=== PATIENT | male | born 1960 | race Caucasian/White ===

== ENCOUNTER 2019-06-17 18:13 | Emergency (ER) | payer OTHER ==
[2019-06-17] MEDS ORDERED: HYDROmorphone 0.5 MG/0.5 ML Syringe IM ONE ×2 (18:36→19:28)
--- NOTE | 2019-06-17 19:20 | EDM.PDOC ---
ED HPI GENERAL MEDICAL PROBLEM - General Chief Complaint: Upper Extremity Injury/Pain Stated Complaint: POSSIBLE BROKEN LEFT ARM Time Seen by Provider: 06/17/19 18:49 Source of Information: Reports: Patient, RN Notes Reviewed History Limitations: Reports: No Limitations - History of Present Illness INITIAL COMMENTS - FREE TEXT/NARRATIVE: Patient is a 59-year-old male who presents to the ED for the evaluation of a left wrist injury. Patient states that he fell outdoors today due to the icy conditions, and ended up slipping backwards and fell onto his outstretched hand. He notes that he pain immediately to the left wrist, he does appreciate some swelling as well. Patient try to go to the walk-in clinic for management but they deferred him here for evaluation and management. Patient did not take any sort of pain medication prior to arrival to the ER. There is no obvious bruising noted, the patient is not having any numbness and tingling distal to the injury. Patient states he has had some shooting pains from time to time that shoots up his elbow, but he is still able to move his elbow ad bettina. He is not complaining of any pain in his shoulder. He did not hit his head. Patient is right-hand dominant. Treatments CERTIFIED NUCLEAR MEDICINE TECHNOLOGIST: Reports: Other (see below) Other Treatments CERTIFIED NUCLEAR MEDICINE TECHNOLOGIST: none Left Wrist Pain Score (Numeric/FACES): 10 - Related Data Allergies Allergy/AdvReac Type Severity Reaction Status Date / Time Sulfa (Sulfonamide Allergy Hives Verified 06/17/19 18:37 Antibiotics) Home Meds: Home Meds Hydrocodone/Acetaminophen [Hydrocodon-Acetaminophen 5-325] 1 each PO Q6H #30 tablet 06/17/19 [Rx] Past Medical History Cardiovascular History: Reports: High Cholesterol, Hypertension Musculoskeletal History: Reports: Arthritis, Back Pain, Chronic, Neck Pain, Chronic Psychiatric History: Reports: Anxiety, Depression Social & Family History - Tobacco Use Smoking Status *Q: Current Every Day Smoker Years of Tobacco use: 30 Packs/Tins Daily: 0.2 - Caffeine Use Caffeine Use: Reports: Soda - Recreational Drug Use Recreational Drug Use: No Review of Systems - Review of Systems Review Of Systems: Comprehensive ROS is negative, except as noted in HPI. ED EXAM, GENERAL - Physical Exam Exam: See Below Exam Limited By: No Limitations General Appearance: Alert, WD/WN, No Apparent Distress Eye Exam: Bilateral Eye: EOMI, Normal Inspection, PERRL Throat/Mouth: Normal Inspection, Normal Lips, Normal Teeth, Normal Gums, Normal Oropharynx, Normal Voice, No Airway Compromise Head: Atraumatic, Normocephalic Neck: Normal Inspection Respiratory/Chest: No Respiratory Distress, Lungs Clear, Normal Breath Sounds, No Accessory Muscle Use, Chest Non-Tender Cardiovascular: Normal Peripheral Pulses, Regular Rate, Rhythm, No Edema, No Murmur Peripheral Pulses: 3+: Radial (L), Radial (R) GI/Abdominal: Normal Bowel Sounds, Soft, Non-Tender, No Distention, No Mass Extremities: Normal Inspection (mild swelling noted to L wrist), Normal Capillary Refill, Limited Range of Motion (of L wrist d/t pain) Neurological: Alert, Oriented, Normal Cognition, No Motor/Sensory Deficits Psychiatric: Normal Affect, Normal Mood Skin Exam: Warm, Dry, Intact, Normal Color, No Rash ED TRAUMA EXTREMITY PROCEDURES - Splinting Left Upper Extremity Splint Site: L wrist Pre-Procedure NV Status: Normal Post-Procedure NV Status: Normal Splint Material: Fiberglass Splint Design: Posterior Applied & Form Fitted By: Provider Provider Post-Splint Application NV Check: NV Status Normal, Good Position Complications: No Course - Vital Signs Last Recorded V/S: Last Vital Signs Temp 98.0 F 06/17/19 18:52 Pulse 82 06/17/19 21:10 Resp 16 06/17/19 21:10 BP 132/77 06/17/19 21:10 Pulse Ox 97 06/17/19 21:10 - Orders/Labs/Meds Orders: Active Orders 24 hr Category Date Time Status DME for Discharge [COMM] Routine Oth 06/17/19 21:06 Ordered Meds: Medications Discontinued Medications Generic Name Dose Route Start Last Admin Trade Name Freq PRN Reason Stop Dose Admin Hydromorphone HCl 0.5 mg 06/17/19 18:36 06/17/19 18:48 Dilaudid IM 06/17/19 18:37 0.5 mg ONETIME ONE Administration Hydromorphone HCl 0.5 mg 06/17/19 19:28 06/17/19 19:34 Dilaudid IM 06/17/19 19:29 0.5 mg ONETIME ONE Administration Oxycodone/Acetaminophen 1 tab 06/17/19 20:34 06/17/19 20:38 Percocet 325-5 Mg PO 06/17/19 20:35 1 tab ONETIME ONE Administration - Re-Assessments/Exams Free Text/Narrative Re-Assessment/Exam: 06/17/19 19:57 Patient presented to the ED for the evaluation of a left wrist injury. X-rays were obtained at time of triage, and this does demonstrate a fracture of his left radius, that is read as a comminuted fracture within the distal left radius that appears to have posterior impaction and dorsal tilt of the distal radial articular margin. There is an avulsion fracture seen off the ulnar styloid process as well. With soft tissue swelling noted. Patient has been given a total of 1 mg of Dilaudid for pain management. Patient will be splinted , recommended follow-up with orthopedics early next week, and will be sent home with some pain medication for over the weekend. Departure - Departure Time of Disposition: 20:08 Disposition: Home, Self-Care 01 Condition: Fair Clinical Impression: Fracture of radius and ulna near wrist Qualifiers: Encounter type: initial encounter Fracture type: closed Laterality: left Qualified Code(s): S52.502A - Unspecified fracture of the lower end of left radius, initial encounter for closed fracture - Discharge Information *PRESCRIPTION DRUG MONITORING PROGRAM REVIEWED*: Yes *COPY OF PRESCRIPTION DRUG MONITORING REPORT IN PATIENT ANGIE: No Prescriptions: Hydrocodone/Acetaminophen [Hydrocodon-Acetaminophen 5-325] 1 each PO Q6H #30 tablet Instructions: Wrist Fracture Treated With Immobilization, [id number] Referrals: Cornel Gardner MD [Primary Care Provider] - Forms: ED Department Discharge, ED Return to Work/School Form Additional Instructions: You have been evaluated in the ED for your left wrist injury. Your x-ray demonstrated that you have fractured your L wrist bones near your wrist joint. Please use ice as tolerated to the affected area. You may take Tylenol 500 mg or ibuprofen 600mg q6 hrs for pain relief. Please do so until you have a tolerable level of pain with activity. Do not exceed 4000mg Tylenol, Do not exceed 3200mg ibuprofen in a 24 hour time period. You were given a prescription for a strong pain medication, hydrocodone/ acetaminophen 5/325, please take 1 tab every 6 hours as needed for pain not relieved by Tylenol or ibuprofen alone. Please note this does contain Tylenol in it, so do not take more than 4000 mg in a 24-hour time span. These medications can be addictive, so please take as few as possible to achieve adequate pain control. These meds can also be quite constipating, recommend that you increase your oral fluid intake and take a stool softener like MiraLAX while taking these medications. Please call Ortho for follow-up and further evaluation Dr. Nunn is our orthopedic surgeon, his office number is [phone]. Please call and set up an appointment as soon as possible for further management, try to shoot for early next week sometime. Please return to ED if your symptoms should change or worsen. Sepsis Event Note - Evaluation Sepsis Screening Result: No Definite Risk - Focused Exam Vital Signs: Vital Signs Temp Pulse Resp BP Pulse Ox 06/17/19 21:10 82 16 132/77 97 06/17/19 18:52 98.0 F 65 20 149/96 H 97 Date Exam was Performed: 06/17/19 Time Exam was Performed: 21:30 - My Orders Last 24 Hours: My Active Orders 06/17/19 21:06 DME for Discharge [COMM] Routine - Assessment/Plan Last 24 Hours: My Active Orders 06/17/19 21:06 DME for Discharge [COMM] Routine
--- NOTE | 2019-06-17 19:42 | CR ---
Left wrist: 3 views left wrist were obtained. Comparison: No previous wrist exam. Comminuted fracture is noted within the distal left radius. Good lateral view was not obtained. There does appear to be posterior impaction with dorsal tilt of distal radial articular margin. Avulsion fracture is noted off the ulnar styloid process. Soft tissue swelling is seen. Impression: 1. Wrist fracture as described above. 2. Soft tissue swelling. Diagnostic code #3 Study was dictated in [place] [employer] Time
[2019-06-17] MEDS ORDERED: Acetaminophen/oxyCODONE 325-5 MG Tab PO ONE (20:34)
== END 2019-06-17 21:10 | disposition home or self-care (01) ==
LOC: JD.ED 18:13
DX: S52.502A Unspecified fracture of the lower end of left radius, initial encounter for closed fracture (principal); S52.612A Displaced fracture of left ulna styloid process, initial encounter for closed fracture; F17.210 Nicotine dependence, cigarettes, uncomplicated; Z88.2 Allergy status to sulfonamides; W00.0XXA Fall on same level due to ice and snow, initial encounter; Y92.89 Other specified places as the place of occurrence of the external cause
CPT/HCPCS: 29125; 73110; 96372; 99284; A9270; J1170; 99283

== ENCOUNTER 2022-09-02 07:36 | Emergency (ER) | payer OTHER ==
[2022-09-02] MEDS ORDERED: Lidocaine/EPINEPHrine/Tetracaine Soln 1 ML TOP ONE ×2 (08:10)
[2022-09-02] MEDS ORDERED: Tranexamic Acid 1,000 MG/10 ML Vial IV ONE (08:10)
== END 2022-09-02 10:00 | disposition home or self-care (01) ==
LOC: JD.ED 07:36
DX: R04.0 Epistaxis (principal); E78.00 Pure hypercholesterolemia, unspecified; I10 Essential (primary) hypertension; Z88.2 Allergy status to sulfonamides; Z79.899 Other long term (current) drug therapy
CPT/HCPCS: 30901; 96374; 99283; A9270; J3490

== ENCOUNTER 2022-09-05 12:00 | Emergency (ER) | payer OTHER ==
[2022-09-05] MEDS ORDERED: Lidocaine 1% with EPINEPHrine 1:100,000 10 ML MDV INJECT ONE (12:53)
[2022-09-05] MEDS ORDERED: Oxymetazoline 0.05% Nasal Spray 30 ML Bottle NAS ONE (12:53)
[2022-09-05] MEDS ORDERED: Tranexamic Acid 1,000 MG/10 ML Vial TOP ONE (13:15)
[2022-09-05] MEDS ORDERED: Lidocaine 1% with EPINEPHrine 1:100,000 20 ML MDV INJECT ONE (13:15)
[2022-09-05] MEDS ORDERED: Tranexamic Acid 1,000 MG/10 ML Vial IVPUSH ONE (13:15)
== END 2022-09-05 14:38 | disposition home or self-care (01) ==
LOC: JD.ED 12:00
DX: R04.0 Epistaxis (principal); I10 Essential (primary) hypertension; E78.00 Pure hypercholesterolemia, unspecified; Z88.2 Allergy status to sulfonamides; Z79.899 Other long term (current) drug therapy
CPT/HCPCS: 30901; 36415; 85025; 85610; 85730; 99283; A9270; J3490